=== PATIENT | female | born 1995 ===

== ENCOUNTER 2018-10-23 20:01 | Emergency (ER) | payer SELFPAY ==
[2018-10-23 20:10] VITALS: BP 145/72; PULSE 69; RESP 20; TEMP 98.2; O2SAT 100
[2018-10-23 20:26] LABS: SQUAMOUS EPITHIAL 1 /hpf (0-5); URINE BACTERIA RARE (<OCC); URINE BILIRUBIN NEGATIVE (NEGATIVE); URINE BLOOD 3+ (NEGATIVE); URINE CLARITY Clear (Clear); URINE COLOR Straw (YELLOW); URINE GLUCOSE (UA) NORMAL (Normal); URINE LEUKOCYTE ESTERASE 3+ Leu/uL (Negative); URINE PROTEIN NEGATIVE (NEGATIVE); URINE UROBILINOGEN NORMAL mg/dL (0.2-1.0)
[2018-10-23 20:27] LABS: HCG,QUALITATIVE URINE NEGATIVE (NEGATIVE)
--- NOTE | 2018-10-23 20:32 | C.PDOC ---
History Of Present Illness 23 y/o female presents to ED complaining of dysuria, hematuria, and frequent urgency for the past 2 days. States she never had blood in her urine before. Denies fever, nausea, vomiting, flank pain, back pain, or other complaints. Time Seen by Provider: 10/23/18 20:12 Chief Complaint (Nursing): Female Genitourinary History Per: Patient History/Exam Limitations: no limitations Onset/Duration Of Symptoms: Days Current Symptoms Are (Timing): Still Present Past Medical History Reviewed: Historical Data, Nursing Documentation, Vital Signs Vital Signs: Last Vital Signs Temp 98.2 F 10/23/18 20:08 Pulse 69 10/23/18 20:08 Resp 20 10/23/18 20:08 BP 145/72 10/23/18 20:08 Pulse Ox 100 10/23/18 20:08 Primary Care Provider: FAMILY PROVIDER,NO Family History: States: No Known Family Hx - Social History Hx Alcohol Use: No Hx Substance Use: No Review Of Systems Except As Marked, All Systems Reviewed And Found Negative. Constitutional: Negative for: Fever, Chills Gastrointestinal: Negative for: Nausea, Vomiting, Other (flank pain) Genitourinary: Positive for: Dysuria, Frequency, Hematuria Musculoskeletal: Negative for: Neck Pain, Back Pain Physical Exam - Physical Exam Appears: Non-toxic, No Acute Distress Skin: Warm, Dry Head: Normacephalic Eye(s): bilateral: Normal Inspection Oral Mucosa: Moist Neck: Supple Cardiovascular: Rhythm Regular, No Murmur Respiratory: Normal Breath Sounds, No Rales, No Rhonchi, No Wheezing Gastrointestinal/Abdominal: Soft, Tenderness (mild suprapubic tenderness), No Guarding, No Rebound Back: No CVA Tenderness Extremity: No Pedal Edema Extremity: Bilateral: Atraumatic, Normal ROM Neurological/Psych: Oriented x3, Normal Speech ED Course And Treatment - Laboratory Results Lab Results: Urine Color Straw (YELLOW) 10/23/18 20:17 Urine Clarity Clear (Clear) 10/23/18 20:17 Urine pH 8.0 (5.0-8.0) 10/23/18 20:17 Ur Specific [place] 1.005 (1.003-1.030) 10/23/18 20:17 Urine Protein Negative mg/dL (NEGATIVE) 10/23/18 20:17 Urine Glucose (UA) Normal mg/dL (Normal) 10/23/18 20:17 Urine Ketones Negative mg/dL (NEGATIVE) 10/23/18 20:17 Urine Blood 3+ (NEGATIVE) H 10/23/18 20:17 Urine Nitrate Negative (NEGATIVE) 10/23/18 20:17 Urine Bilirubin Negative (NEGATIVE) 10/23/18 20:17 Urine Urobilinogen Normal mg/dL (0.2-1.0) 10/23/18 20:17 Ur Leukocyte Esterase 3+ Domenico/uL (Negative) H 10/23/18 20:17 Urine WBC (Auto) 44 /hpf (0-5) H 10/23/18 20:17 Urine RBC (Auto) 50 /hpf (0-3) H 10/23/18 20:17 Ur Squamous Epith Cells 1 /hpf (0-5) 10/23/18 20:17 Urine Bacteria Rare (<OCC) 10/23/18 20:17 Urine HCG, Qual Negative (NEGATIVE) 10/23/18 20:17 Urine HCG, Qual Negative (NEGATIVE) 10/23/18 20:17 O2 Sat by Pulse Oximetry: 100 (RA) Pulse Ox Interpretation: Normal Progress Note: Urine sent, positive for UTI. Patient given macrobid and pyridium. Will be discharged home. Disposition - Disposition Referrals: [facility] [Outside] Disposition: HOME/ ROUTINE Disposition Time: 20:30 Condition: GOOD Additional Instructions: Follow up with PMD/clinic within 1-2 days. Return to ED if feel worse. 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 - Scribe Statement The provider has reviewed the documentation as recorded by the Scribe Mireille Rasmussen All medical record entries made by the Scribe were at my direction and personally dictated by me. I have reviewed the chart and agree that the record accurately reflects my personal performance of the history, physical exam, me dical decision making, and the department course for this patient. I have also personally directed, reviewed, and agree with the discharge instructions and disposition.
== END 2018-10-23 20:37 | disposition home or self-care (01) ==
LOC: C.ER 20:01
DX: N30.90 Cystitis, unspecified without hematuria (principal)